=== PATIENT | female | born 1975 | race Caucasian/White ===

== ENCOUNTER 2018-07-14 19:30 | Inpatient (IN) | payer MEDICARE, MEDICAID ==
[~2018-07-14] VITALS: Ht 160 cm; Wt 83.5 kg
[~2018-07-14 19:30] MED LIST: ADV250 IH; ALBU8.5H3 IH; QUET200T PO
[2018-07-14] MEDS ORDERED: HALOPERIDOL 5 MG TABLET PO PRN (22:45)
[2018-07-14 23:08] VITALS: BP 166/77
[2018-07-14] MEDS ORDERED: LOPERAMIDE HCL 2 MG CAPSULE PO PRN (23:15)
[2018-07-14] MEDS ORDERED: GuaiFENesin/D-METHORPHAN [SUGAR-FREE] 200-20MG/10 ML SYRUP UDCUP PO PRN (23:15)
[2018-07-14] MEDS ORDERED: MAGNESIUM HYDROXIDE SUSPENSION 30 ML UDCUP PO PRN (23:15)
[2018-07-14] MEDS ORDERED: POTASSIUM CHLORIDE 20 MEQ ER TABLET PO ONE (23:15)
[2018-07-14] MEDS ORDERED: NICOTINE 14 MG/24 HOUR PATCH TD PRN (23:15)
[2018-07-14] MEDS ORDERED: CloNIDine HCL 0.1 MG TABLET PO PRN (23:15)
[2018-07-14] MEDS ORDERED: ONDANSETRON HCL 4 MG TABLET PO PRN (23:15)
[2018-07-14] MEDS ORDERED: DOCUSATE SODIUM 100 MG CAPSULE PO PRN (23:15)
[2018-07-14] MEDS ORDERED: PETROLATUM,WHITE 71 GM JELLY TP PRN (23:15)
[2018-07-14] MEDS ORDERED: MAG HYDROX/AL HYDROX/SIMETH ES 30 ML SUSPENSION UDCUP PO PRN (23:15)
[2018-07-14] MEDS ORDERED: ALBUTEROL SULFATE HFA 90 MCG/PUFF 8 GM INHALER IH PRN (23:15)
[2018-07-14] MEDS ORDERED: PNEUMOCOCCAL VACCINE POLYVALENT 0.5 ML VIAL [PPSV23] IM ONE (23:45)
[2018-07-14] MEDS: LORazepam 2 MG TABLET PO PRN (23:49)
[2018-07-15 05:17] VITALS: BP 143/74
[2018-07-15] MEDS: FLUTICASONE/SALMETEROL 250 MCG-50 MCG/INH DISKUS INHALER [28] IH SCH ×2 (08:30→19:48)
[2018-07-15] MEDS: LORazepam 2 MG TABLET PO PRN (08:31)
[2018-07-15 10:13] VITALS: BP 163/92
[2018-07-15] MEDS: AmLODIPine BESYLATE 5 MG TABLET PO SCH (11:00)
[2018-07-15 12:30] VITALS: BP 147/86
[2018-07-15] MEDS: LamoTRIgine 25 MG TABLET PO SCH (12:37)
[2018-07-15 16:20] VITALS: BP 140/80
[2018-07-16 00:05] VITALS: BP 142/83
[2018-07-16] MEDS: FLUTICASONE/SALMETEROL 250 MCG-50 MCG/INH DISKUS INHALER [28] IH SCH ×2 (08:00→20:54)
[2018-07-16 08:29] VITALS: BP 133/71
[2018-07-16] MEDS: LamoTRIgine 25 MG TABLET PO SCH (08:35)
[2018-07-16] MEDS: AmLODIPine BESYLATE 5 MG TABLET PO SCH (08:35)
[2018-07-16] MEDS: SERTRALINE HCL 50 MG TABLET PO SCH (08:35)
[2018-07-16] MEDS: LORazepam 2 MG TABLET PO PRN ×2 (11:51→18:44)
[2018-07-16] MEDS: IBUPROFEN 400 MG TABLET PO PRN (12:26)
[2018-07-16] MEDS ORDERED: TraMADol HCL 50 MG TABLET PO PRN (13:15)
[2018-07-16 16:03] VITALS: BP 137/81
[2018-07-16] MEDS: ERYTHROMYCIN 0.5% 3.5 GM TUBE OPHTHALMIC OINTMENT OS SCH (21:34)
[2018-07-17 06:52] VITALS: BP 140/87
[2018-07-17 08:14] VITALS: BP 131/81
[2018-07-17] MEDS: SERTRALINE HCL 50 MG TABLET PO SCH (09:09)
[2018-07-17] MEDS: AmLODIPine BESYLATE 5 MG TABLET PO SCH (09:09)
[2018-07-17] MEDS: LamoTRIgine 25 MG TABLET PO SCH (09:09)
[2018-07-17] MEDS: FLUTICASONE/SALMETEROL 250 MCG-50 MCG/INH DISKUS INHALER [28] IH SCH ×2 (09:09→20:24)
[2018-07-17] MEDS: NICOTINE 14 MG/24 HOUR PATCH TD SCH (09:11)
[2018-07-17] MEDS: ERYTHROMYCIN 0.5% 3.5 GM TUBE OPHTHALMIC OINTMENT OS SCH ×2 (09:16→16:38)
[2018-07-17] MEDS: LORazepam 2 MG TABLET PO PRN ×2 (13:14→18:00)
[2018-07-17 14:23] VITALS: BP 132/78
[2018-07-17] MEDS: IBUPROFEN 400 MG TABLET PO PRN (14:23)
[2018-07-17 16:00] VITALS: BP 109/82
[2018-07-18 01:30] VITALS: BP 112/80
[2018-07-18] MEDS: FLUTICASONE/SALMETEROL 250 MCG-50 MCG/INH DISKUS INHALER [28] IH SCH ×2 (08:35→20:01)
[2018-07-18] MEDS: SERTRALINE HCL 50 MG TABLET PO SCH (08:35)
[2018-07-18] MEDS: LamoTRIgine 25 MG TABLET PO SCH (08:35)
[2018-07-18] MEDS: NICOTINE 14 MG/24 HOUR PATCH TD SCH (08:35)
[2018-07-18] MEDS: ERYTHROMYCIN 0.5% 3.5 GM TUBE OPHTHALMIC OINTMENT OS SCH ×2 (08:36→16:33)
[2018-07-18] MEDS: AmLODIPine BESYLATE 5 MG TABLET PO SCH (09:00)
[2018-07-18 09:08] VITALS: BP 136/76
[2018-07-18] MEDS: LORazepam 2 MG TABLET PO PRN ×2 (13:48→18:04)
[2018-07-18 14:28] VITALS: BP 130/82
[2018-07-18] MEDS: IBUPROFEN 400 MG TABLET PO PRN (14:28)
[2018-07-18 16:12] VITALS: BP 134/88
[2018-07-18] MEDS: ZOLPIDEM TARTRATE 10 MG TABLET PO PRN (20:46)
[2018-07-19 00:43] VITALS: BP 100/68
[2018-07-19 08:16] VITALS: BP 133/64
[2018-07-19 08:42] LABS: BASOPHILS % (AUTO) 0.4 % (0.0-2.0); EOSINOPHILS % (AUTO) 3.7 % (1.0-6.0); HEMATOCRIT 38.3 % (36-46); HEMOGLOBIN 12.3 g/dL (12.0-16.0); LYMPHOCYTES # (AUTO) 2.1 K/uL (1.0-4.8); LYMPHOCYTES % (AUTO) 28.4 % (22.0-44.0); MEAN CORPUSCULAR HEMOGLOBIN 23.9 pg (26.0-34.0); MEAN CORPUSCULAR VOLUME 75 fL (80-100); MONOCYTES # (AUTO) 0.8 K/uL (0.1-1.0); MONOCYTES % (AUTO) 10.6 % (2.0-9.0); NEUTROPHILS # (AUTO) 4.2 K/uL (1.8-7.7); NEUTROPHILS % (AUTO) 56.9 % (40.0-70.0); PLATELET COUNT (AUTO) 335 K/uL (150-450); RED BLOOD CELL COUNT(AUTO) 5.15 MIL/uL (4.00-5.20); RED CELL DISTRIBUTION WIDTH 21.4 % (11.5-14.5)
[2018-07-19 09:24] LABS: ALANINE AMINOTRANSFERASE 21 U/L (12-78); ALBUMIN 3.6 g/dL (3.4-5.0); ALKALINE PHOSPHATASE 109 U/L (46-116); ANION GAP 9 mmol/L (8-16); ASPARTATE AMINOTRANSFERASE 14 U/L (15-37); BILIRUBIN,TOTAL 0.3 mg/dL (0.1-1.0); CALCIUM, TOTAL 9.1 mg/dL (8.8-10.5); CARBON DIOXIDE 26 mmol/L (22-29); CHLORIDE 105 mmol/L (98-107); CREATININE 0.72 mg/dL (0.60-1.30); GLOMERULAR FILTR. RATE CALC > 60 mL/min (>60); GLUCOSE,RANDOM 99 mg/dL (70-110); POTASSIUM 4.5 mmol/L (3.5-5.1); SODIUM SERUM 140 mmol/L (136-145); TOTAL PROTEIN, SERUM 8.1 g/dL (6.4-8.2); UREA NITROGEN, BLOOD 18 mg/dL (7-18)
[2018-07-19] MEDS: SERTRALINE HCL 50 MG TABLET PO SCH (09:43)
[2018-07-19] MEDS: LamoTRIgine 25 MG TABLET PO SCH (09:43)
[2018-07-19] MEDS: AmLODIPine BESYLATE 5 MG TABLET PO SCH (09:43)
[2018-07-19] MEDS: ERYTHROMYCIN 0.5% 3.5 GM TUBE OPHTHALMIC OINTMENT OS SCH ×2 (09:44→16:37)
[2018-07-19] MEDS: LORazepam 2 MG TABLET PO PRN ×2 (09:44→15:03)
[2018-07-19] MEDS: FLUTICASONE/SALMETEROL 250 MCG-50 MCG/INH DISKUS INHALER [28] IH SCH ×2 (09:44→20:03)
[2018-07-19] MEDS: NICOTINE 14 MG/24 HOUR PATCH TD SCH (09:48)
[2018-07-19] MEDS: IBUPROFEN 400 MG TABLET PO PRN (16:01)
[2018-07-19 16:02] VITALS: BP 123/75
[2018-07-19] MEDS: ZOLPIDEM TARTRATE 10 MG TABLET PO PRN (21:05)
[2018-07-19] MEDS ORDERED: IBUPROFEN 800 MG TABLET PO PRN (23:15)
[2018-07-20 00:16] VITALS: BP 138/80
[2018-07-20] MEDS: FLUTICASONE/SALMETEROL 250 MCG-50 MCG/INH DISKUS INHALER [28] IH SCH ×2 (08:00→20:39)
[2018-07-20 08:28] VITALS: BP 126/76
[2018-07-20] MEDS: NICOTINE 14 MG/24 HOUR PATCH TD SCH (08:46)
[2018-07-20] MEDS: SERTRALINE HCL 50 MG TABLET PO SCH (08:46)
[2018-07-20] MEDS: LamoTRIgine 25 MG TABLET PO SCH (08:46)
[2018-07-20] MEDS: ERYTHROMYCIN 0.5% 3.5 GM TUBE OPHTHALMIC OINTMENT OS SCH ×2 (08:47→16:32)
[2018-07-20] MEDS: AmLODIPine BESYLATE 5 MG TABLET PO SCH (08:51)
[2018-07-20] MEDS: LORazepam 2 MG TABLET PO PRN ×2 (11:49→16:19)
[2018-07-20 11:58] VITALS: BP 122/78
[2018-07-20] MEDS ORDERED: LAMO25TA66 PO (13:57)
[2018-07-20] MEDS ORDERED: SERT50TA12 PO (13:58)
[2018-07-20 16:04] VITALS: BP 110/78
[2018-07-20] MEDS: IBUPROFEN 800 MG TABLET PO PRN (19:06)
[2018-07-20 19:07] VITALS: BP 126/81
[2018-07-20] MEDS: ZOLPIDEM TARTRATE 10 MG TABLET PO PRN (21:03)
[2018-07-21 02:27] VITALS: BP 124/78
[2018-07-21 08:20] VITALS: BP 135/61
[2018-07-21] MEDS: AmLODIPine BESYLATE 5 MG TABLET PO SCH (08:29)
[2018-07-21] MEDS: ERYTHROMYCIN 0.5% 3.5 GM TUBE OPHTHALMIC OINTMENT OS SCH (08:29)
[2018-07-21] MEDS: FLUTICASONE/SALMETEROL 250 MCG-50 MCG/INH DISKUS INHALER [28] IH SCH (08:29)
[2018-07-21] MEDS: NICOTINE 14 MG/24 HOUR PATCH TD SCH (08:29)
[2018-07-21] MEDS: LamoTRIgine 25 MG TABLET PO SCH (08:29)
[2018-07-21] MEDS: SERTRALINE HCL 50 MG TABLET PO SCH (08:29)
[2018-07-21] MEDS ORDERED: AMLO-511 PO (08:33)
[2018-07-21] MEDS: LORazepam 2 MG TABLET PO PRN (08:47)
[2018-07-21] MEDS: IBUPROFEN 800 MG TABLET PO PRN (08:47)
== END 2018-07-21 10:20 | disposition home or self-care (01) | DRG 885 ==
LOC: B2X 22:39
PROVIDERS: ADMIT Psychiatry & Neurology Psychiatry; ATTEND Psychiatry & Neurology Psychiatry
DX: F25.0 Schizoaffective disorder, bipolar type (principal); F19.20 Other psychoactive substance dependence, uncomplicated; R45.851 Suicidal ideations; R45.87 Impulsiveness; F60.3 Borderline personality disorder; B18.2 Chronic viral hepatitis C; K21.9 Gastro-esophageal reflux disease without esophagitis; J44.9 Chronic obstructive pulmonary disease, unspecified; F10.10 Alcohol abuse, uncomplicated; F17.200 Nicotine dependence, unspecified, uncomplicated; F41.9 Anxiety disorder, unspecified; Z79.899 Other long term (current) drug therapy; Z91.19 Patient's noncompliance with other medical treatment and regimen; Z71.41 Alcohol abuse counseling and surveillance of alcoholic; Z71.51 Drug abuse counseling and surveillance of drug abuser; Z59.0 Homelessness; Z91.5 Personal history of self-harm; Z88.8 Allergy status to other drugs, medicaments and biological substances
CPT/HCPCS: 90471; J3535

== ENCOUNTER 2023-08-19 00:42 | Inpatient (IN) | payer MEDICARE, MEDICAID ==
[~2023-08-19] VITALS: Ht 157.5 cm; Wt 76.2 kg
[~2023-08-19 00:42] MED LIST changes: -ADV250 IH; -ALBU8.5H3 IH; +AMLO-257 PO; +FLUT1DIS6 IH; +LAMO25TA66 PO; -QUET200T PO; +SERT-158 PO
[2023-08-19 05:32] LABS: BASOPHILS % (AUTO) 1.1 % (0.0-2.0); EOSINOPHILS % (AUTO) 4.5 % (1.0-6.0); HEMATOCRIT 41.5 % (36-46); HEMOGLOBIN 13.7 g/dL (12.0-16.0); LYMPHOCYTES # (AUTO) 2.5 K/uL (1.0-4.8); LYMPHOCYTES % (AUTO) 30.3 % (22.0-44.0); MEAN CORPUSCULAR HEMOGLOBIN 27.1 pg (26.0-34.0); MEAN CORPUSCULAR HGB CONC 33.1 G/dL (31.0-37.0); MEAN CORPUSCULAR VOLUME 82 fL (80-100); MONOCYTES # (AUTO) 0.8 K/uL (0.1-1.0); MONOCYTES % (AUTO) 9.8 % (2.0-9.0); NEUTROPHILS # (AUTO) 4.5 K/uL (1.8-7.7); NEUTROPHILS % (AUTO) 54.3 % (40.0-70.0); PLATELET COUNT (AUTO) 255 K/uL (150-450); RED BLOOD CELL COUNT(AUTO) 5.07 MIL/uL (4.00-5.20); RED CELL DISTRIBUTION WIDTH 14.2 % (11.5-14.5); WHITE BLOOD COUNT (AUTO) 8.2 K/uL (4.5-11.0)
[2023-08-19 05:43] LABS: ANION GAP 8 mmol/L (8-16); CALCIUM, TOTAL 9.3 mg/dL (8.8-10.5); CARBON DIOXIDE 29 mmol/L (22-29); CHLORIDE 104 mmol/L (98-107); CREATININE 0.78 mg/dL (0.60-1.30); GLOMERULAR FILTR. RATE CALC > 60 mL/min (>60); GLUCOSE,RANDOM 120 mg/dL (70-110); POTASSIUM 4.3 mmol/L (3.5-5.1); SODIUM SERUM 141 mmol/L (136-145); UREA NITROGEN, BLOOD 19 mg/dL (7-18)
[2023-08-19 05:50] LABS: ALANINE AMINOTRANSFERASE 20 U/L (12-78); ALBUMIN 3.3 g/dL (3.4-5.0); ALKALINE PHOSPHATASE 98 U/L (46-116); ASPARTATE AMINOTRANSFERASE 15 U/L (15-37); BILIRUBIN,TOTAL 0.1 mg/dL (0.1-1.0); TOTAL PROTEIN, SERUM 7.2 g/dL (6.4-8.2)
[2023-08-19 05:51] LABS: ALCOHOL, BLOOD (SERUM) < 3 mg/dL (0-10)
[2023-08-19 07:51] LABS: COVID AG,FIA SOURCE NASAL SWAB
[2023-08-19 08:20] LABS: SARS-COV2 (COVID) ANTIGEN,FIA Negative (Negative)
[2023-08-19 16:42] VITALS: BP 152/96; PULSE 92; RESP 18; TEMP 97.6
[2023-08-19] MEDS ORDERED: ALBUTEROL SULFATE HFA 90 MCG/PUFF 8 GM INHALER IH PRN ×2 (18:15→18:45)
[2023-08-19] MEDS ORDERED: NICOTINE 14 MG/24 HOUR PATCH TD PRN (18:15)
[2023-08-19] MEDS ORDERED: IBUPROFEN 400 MG TABLET PO PRN (18:45)
[2023-08-19] MEDS ORDERED: GuaiFENesin/D-METHORPHAN [SUGAR-FREE] 200-20MG/10 ML SYRUP UDCUP PO PRN (18:45)
[2023-08-19] MEDS ORDERED: ONDANSETRON HCL 4 MG TABLET PO PRN (18:45)
[2023-08-19] MEDS ORDERED: PETROLATUM,WHITE 28 GM JELLY TP PRN (18:45)
[2023-08-19] MEDS ORDERED: MAGNESIUM HYDROXIDE SUSPENSION 30 ML UDCUP PO PRN (18:45)
[2023-08-19] MEDS ORDERED: CloNIDine HCL 0.1 MG TABLET PO PRN (18:45)
[2023-08-19] MEDS ORDERED: LOPERAMIDE HCL 2 MG CAPSULE PO PRN (18:45)
[2023-08-19] MEDS ORDERED: MAG HYDROX/AL HYDROX/SIMETH ES 30 ML SUSPENSION UDCUP PO PRN (18:45)
[2023-08-19] MEDS ORDERED: DOCUSATE SODIUM 100 MG CAPSULE PO PRN (18:45)
[2023-08-19 22:10] VITALS: BP 112/65; PULSE 92; RESP 18; TEMP 97.3
[2023-08-20] MEDS: LORazepam 2 MG TABLET PO PRN ×3 (04:44→21:02)
[2023-08-20] MEDS: FLUTICASONE/VILANTEROL 200-25 MCG/INH INHALER [14] IH SCH (09:24)
[2023-08-20] MEDS: ASPIRIN 325 MG TABLET PO SCH (09:24)
[2023-08-20 10:34] VITALS: BP 141/83; PULSE 96; RESP 17; TEMP 98.2
[2023-08-20] MEDS: NICOTINE 14 MG/24 HOUR PATCH TD PRN (12:13)
[2023-08-20] MEDS: LamoTRIgine 25 MG TABLET PO SCH (13:30)
[2023-08-20] MEDS: SERTRALINE HCL 50 MG TABLET PO SCH (13:30)
[2023-08-20] MEDS: QUEtiapine FUMARATE 100 MG TABLET PO PRN ×2 (18:01→21:02)
[2023-08-20] MEDS: ZOLPIDEM TARTRATE 10 MG TABLET PO PRN (21:45)
[2023-08-20 23:17] VITALS: RESP 18
[2023-08-21 09:05] VITALS: BP 139/74; PULSE 99; RESP 18; TEMP 97.5
[2023-08-21] MEDS: LamoTRIgine 25 MG TABLET PO SCH (09:25)
[2023-08-21] MEDS: ASPIRIN 325 MG TABLET PO SCH (09:26)
[2023-08-21] MEDS: FLUTICASONE/VILANTEROL 200-25 MCG/INH INHALER [14] IH SCH (09:27)
[2023-08-21] MEDS: SERTRALINE HCL 50 MG TABLET PO SCH (09:28)
[2023-08-21] MEDS: NICOTINE 14 MG/24 HOUR PATCH TD PRN (09:41)
[2023-08-21] MEDS: LORazepam 2 MG TABLET PO PRN ×3 (10:11→20:32)
[2023-08-21] MEDS: QUEtiapine FUMARATE 100 MG TABLET PO PRN ×2 (10:13→19:35)
[2023-08-21 21:43] VITALS: BP 148/89; PULSE 98; RESP 18; TEMP 97.9
[2023-08-21] MEDS: ZOLPIDEM TARTRATE 10 MG TABLET PO PRN (22:38)
[2023-08-22] MEDS: LORazepam 2 MG TABLET PO PRN ×3 (02:47→12:54)
[2023-08-22] MEDS: QUEtiapine FUMARATE 100 MG TABLET PO PRN ×2 (02:49→12:55)
[2023-08-22] MEDS: ASPIRIN 325 MG TABLET PO SCH (08:53)
[2023-08-22] MEDS: SERTRALINE HCL 50 MG TABLET PO SCH (08:53)
[2023-08-22] MEDS: FLUTICASONE/VILANTEROL 200-25 MCG/INH INHALER [14] IH SCH (08:54)
[2023-08-22] MEDS: LamoTRIgine 25 MG TABLET PO SCH (08:54)
[2023-08-22] MEDS ORDERED: ASPI-1026 PO (17:39)
[2023-08-22] MEDS ORDERED: FLUT1BLS IH (17:39)
[2023-08-22] MEDS ORDERED: SERT-439 PO (17:39)
[2023-08-22] MEDS ORDERED: LAMO25TA36 PO (17:39)
== END 2023-08-22 15:30 | disposition home or self-care (01) | DRG 885 ==
LOC: EMS 00:43 → 3EI 16:12
PROVIDERS: ADMIT Psychiatry & Neurology Psychiatry; ATTEND Psychiatry & Neurology Psychiatry
DX: F31.4 Bipolar disorder, current episode depressed, severe, without psychotic features (principal); B19.20 Unspecified viral hepatitis C without hepatic coma; R45.851 Suicidal ideations; I10 Essential (primary) hypertension; Z20.822 Contact with and (suspected) exposure to COVID-19; R73.9 Hyperglycemia, unspecified; F17.210 Nicotine dependence, cigarettes, uncomplicated; J44.9 Chronic obstructive pulmonary disease, unspecified; K21.9 Gastro-esophageal reflux disease without esophagitis; Z79.899 Other long term (current) drug therapy; Z59.00 Homelessness unspecified; Z88.6 Allergy status to analgesic agent; Z91.51 Personal history of suicidal behavior; Z88.8 Allergy status to other drugs, medicaments and biological substances
CPT/HCPCS: 80053; 84703; 85025; 99285; G0480; Q9967